=== PATIENT | male | born 1960 | race Caucasian/White ===

== ENCOUNTER 2022-03-10 11:01 | Emergency (ER) | payer MEDICAID ==
[~2022-03-10] VITALS: Ht 172.7 cm; Wt 89.0 kg
[2022-03-10] MEDS ORDERED: KETOROLAC 60MG/2ML VIAL IM ONE (16:45)
[2022-03-10] MEDS ORDERED: MORPHINE SULFATE 10 MG/ML CPJ IM ONE (16:45)
[2022-03-10] MEDS ORDERED: ACETAMINOPHEN 325MG TABLET PO ONE (16:45)
[2022-03-10 17:36] LABS: CLARITY URINE CLEAR (CLEAR); COLOR URINE YELLOW (YELLOW); KETONES URINE NEGATIVE (NEGATIVE); LEUKOCYTE ESTERASE URINE NEGATIVE (NEGATIVE); NITRITE URINE NEGATIVE (NEGATIVE); OCCULT BLOOD URINE 1+ (NEGATIVE); PH URINE 5.5 (4.5-8.0); PROTEIN URINE NEGATIVE (NEGATIVE)
[2022-03-10] MEDS ORDERED: IBUP-2028 MT (17:51)
[2022-03-10] MEDS ORDERED: TOPUD PO (17:51)
[2022-03-10 18:20] VITALS: BP 143/72
== END 2022-03-10 18:34 | disposition home or self-care (01) ==
LOC: ER 11:20
DX: Z48.00 Encounter for change or removal of nonsurgical wound dressing (principal)
CPT/HCPCS: 81003; 96372; 99284; J1885; J2270